=== PATIENT | female | born 1965 | race Caucasian/White ===

== ENCOUNTER → 2019-10-15 | Emergency (ER) | payer OTHER ==
[~2019-10-15] VITALS: Ht 162.6 cm; Wt 65.8 kg
== END | disposition home or self-care (01) ==
LOC: ER 15:13
DX: R06.2 Wheezing (principal); G25.1 Drug-induced tremor; T50.995A Adverse effect of other drugs, medicaments and biological substances, initial encounter; Y92.89 Other specified places as the place of occurrence of the external cause